=== PATIENT | male | born 1965 | race Caucasian/White ===

== ENCOUNTER 2024-04-10 11:01 | Outpatient (AMB) | payer OTHER, SELFPAY ==
--- NOTE | 2024-04-10 11:07 | A.OFFVIS_ITS ---
Vital Signs 04/10/24 11:10 Height 5 ft 10 in Weight 158 lb BMI 22.7 BP 105/62 Blood Pressure Location Rt brachial Position Sitting Pulse 56 Intake Visit Reasons: Hemorrhoids Intake Note: This patient presents for hemorrhoids assessment. Pt c/o; reports no rectal bleeding, pain, or constipation. 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 He says that he has had hemorrhoid problems for about 20 years now. He describes what sounds like prolapse of his hemorrhoids with associated discomfort and occasional bleeding. This seems to have been worsening over the years. He says he has difficulty with hygiene as well because of the hemorrhoids on the outside He denies problems with constipation He says he is healthy overall. [facility] Medical History (Updated 04/10/24 @ 11:36 by Danny Ruiz MD) Hemorrhoids with complication Surgical History (Updated 04/10/24 @ 11:20 by HELEN Balderas) History of colonoscopy (~2017) Social History (Updated 04/10/24 @ 11:21 by HELEN Balderas) Alcohol intake: never Patient Tobacco Use Status: Never used Tobacco Review of Systems Const Denies chills and Denies fever(s) Card Denies chest pain, Denies dyspnea and Denies dyspnea on exertion Resp Denies cough, Denies dyspnea and Denies dyspnea on exertion GI Denies hematochezia and Denies change in bowel habits Denies hematuria and Denies difficulty urinating Musc Denies back pain and Denies limited range of motion Neuro Denies focal weakness and Denies convulsions Psych Denies depression and Denies mood swings Physical Exam Vital Signs: Last Vital Signs Pulse 56 04/10/24 11:10 BP 105/62 04/10/24 11:10 BMI result Body Mass Index 22.7 Const General: comfortable and no acute distress Orientation/consciousness: patient oriented x3 Neck Neck: Yes no lymphadenopathy Resp Auscultation: clear to auscultation bilaterally Cardio Rhythm: regular rhythm GI Other: Rectal exam shows hemorrhoids, external, moderate sites on both the left and right side Palpation (GI): Soft to palpation, nontender and no guarding Neuro General: patient oriented x3 Office Procedures Anoscopy He was in karley-knife position. The anoscope was gently inserted. A full examination of the anal canal was done. He did have internal external hemorrhoidal columns, very prominent on both the left and right side. There was no fissure, there was no ulceration. There was no induration on digital exam [id number] Assessment & Plan Assessment & Plan (1) Hemorrhoids with complication: Code(s): K64.8 - Other hemorrhoids Category: Medical Plan: He has both internal external hemorrhoids, very prominent. He describes worsening problems with swelling, pain, discomfort and difficulty with hygiene. He wants to proceed with a hemorrhoidectomy. I had a long discussion with him about the technique of exam under anesthesia and hemorrhoidectomy. I reviewed the risks including but not limited to bleeding, infections, postop pain, as well as the benefits and alternatives. I reviewed with him what to expect postoperatively He understands and wants to proceed. Coding Level of Care Code New Pt Level 3 (37633) Diagnoses Hemorrhoids with complication K64.8 CPT Codes Details - CPT: 22042-Pdnpdymq ([id number])
[2024-04-10 11:10] VITALS: BP 105/62; PULSE 56; BMI 22.7
== END 2024-04-10 11:40 | disposition home or self-care (01) ==
PROVIDERS: Visit Provider Surgery
DX: K64.8 Other hemorrhoids (principal)
CPT/HCPCS: 46600; 99203

== ENCOUNTER → 2024-04-10 11:01 | Outpatient (BNVA) | payer OTHER, SELFPAY | PROVIDERS: Visit Provider Surgery | DX: K64.8 Other hemorrhoids (principal); K64.4 Residual hemorrhoidal skin tags | CPT/HCPCS: 46600 ==

== ENCOUNTER 2024-05-24 07:59 | Day surgery (SDC) | payer OTHER, SELFPAY ==
[2024-05-22 12:12] VITALS: BMI 22.7
--- NOTE | 2024-05-22 13:47 | HO.ANESPROP2 ---
HPI - Anesthesia Eval Consult details Narrative: 59yo M for EUA, Hemorrhoidectomy PMFSH Active Problems Active Problems: All Active Problems Hemorrhoids with complication (Acute) Past Medical History Medical History Hemorrhoids with complication Surgical History Surgical History History of hemorrhoidectomy (~05/24/24) Hx of hand surgery Hx of appendectomy Hx of umbilical hernia repair History of colonoscopy (~2016) Social History Social History Alcohol intake: never Patient Tobacco Use Status: Never used Tobacco Tobacco use type: Pipe Meds Allergies Allergy/AdvReac Type Severity Reaction Status Date / Time No Known Allergies Allergy Verified 06/06/24 10:11 Home Medications ?Medication ?Instructions ?Recorded ?Confirmed ?Last Taken ?Type multivitamin 1 tab PO DAILY 04/10/24 05/24/24 Unknown History propranolol 20 mg tablet 20 mg PO Q3H PRN anxiety 04/10/24 05/24/24 Unknown History Exam Height,Weight and Vital Signs: Height 5 ft 10 in Weight 71.668 kg Assessment and Plan Assessment Anesthesia Assessment: Chart Reviewed
[2024-05-24 08:09] VITALS: BMI 22.1
[2024-05-24 08:15] VITALS: BP 105/66; PULSE 48; RESP 15; TEMP 36.6; O2SAT 98
--- NOTE | 2024-05-24 09:18 | HO.ANESPROP2 ---
[facility] Active Problems Active Problems: All Active Problems Hemorrhoids with complication (Acute) Past Medical History Medical History Hemorrhoids with complication Functional capacity: independent ambulation Family History Family history of problems with anesthesia: No Surgical History Surgical History Hx of hand surgery Hx of appendectomy Hx of umbilical hernia repair History of colonoscopy (~2016) History of Problems with Anesthesia: No Social History Social History Alcohol intake: never Patient Tobacco Use Status: Never used Tobacco Tobacco use type: Pipe Use of substances other than those prescribed or required for medical reasons: No Are you DNR?: No Advance Directives: No Advance Directives Information Provided: Yes Meds Allergies Allergy/AdvReac Type Severity Reaction Status Date / Time No Known Allergies Allergy Verified 05/24/24 08:07 Active Medications: Current Medications Lactated Ringer's (Lr) 1,000 mls @ 100 mls/hr IVCONT .Q10H JOSE E Home Medications ?Medication ?Instructions ?Recorded ?Confirmed ?Last Taken ?Type multivitamin 1 tab PO DAILY 04/10/24 05/24/24 Unknown History propranolol 20 mg tablet 20 mg PO Q3H PRN anxiety 04/10/24 05/24/24 Unknown History Exam Height,Weight and Vital Signs: Height 5 ft 10 in Weight 69.853 kg Last Vital Signs Temp 97.8 F 05/24/24 08:15 Pulse 48 L 05/24/24 08:15 Resp 15 05/24/24 08:15 BP 105/66 05/24/24 08:15 Pulse Ox 98 05/24/24 08:15 O2 Del Method Room Air 05/24/24 08:15 Airway Mallampati Class: II TM Dist: >3cm Neck ROM: Full Heart: RRR Lungs: CTA Assessment and Plan Assessment Anesthesia Assessment: Anesthesia Plan Discussed and Chart Reviewed Final Anesthetic Review Family History of Problems with Anesthesia: No History of Problems with Anesthesia: No NPO: Yes ASA Class: II and Emergency Final Preanesthetic Review: Meds/Allgs Chart Reviewed, Consent Obtained/Reviewed and Anes Risks/Benef Reviewed Patient Risk: Low Procedure Risk: Low Anesthetic Plan Anesthetic Plan: GA Disposition: Standard PACU
--- NOTE | 2024-05-24 09:38 | MHC.SHP ---
Pre-Procedural Eval Section A - 24 Hr Update-Section A only Date of Service: 05/24/24 Section B - Complete if H&P > 30 days Chief Complaint: Other hemorrhoids Details of Present Illness: Has had worsening discomfort with his hemorrhoids and wants to proceed with hemorrhoidectomy Relevant Family History (Specify if Yes): No Relevant Social History: None Present Medications: see Short Stay Collaborative assessment Medical History: No relevant PMH Allergies: Allergies Allergy/AdvReac Type Severity Reaction Status Date / Time No Known Allergies Allergy Verified 05/24/24 08:07 Review of Systems Sugical H&P ROS: Negative: Constitution, Respiratory, Gastrointestinal and Genitourinary Exam Surgical H&P Exam: Normal: Heart, Normal: Lungs, Normal: Abdomen and Normal: Neurological Plan Diagnosis/Plan: Unchanged I have reviewed the history and physical and performed a pertinent physical examination on my patient. No changes have occurred unless specified. Time Spent With Patient Time: Total time managing care of this patient today ____ minutes.
--- NOTE | 2024-05-24 10:38 | W.PM.OPN ---
Operative Note Operative Note Date of Service: 05/24/24 Narrative: Preop diagnosis: Internal external hemorrhoids, with discomfort and bleeding Postop diagnosis: The same Procedure: Exam under anesthesia hemorrhoidectomy x2 columns Surgeon: Danny Ruiz MD The patient is a 59-year-old male with a long history of discomfort, and bleeding with his hemorrhoids. He therefore wanted to proceed with a hemorrhoidectomy. He understood the technique of the planned procedure as well as the risks, benefits, and alternatives He was brought to the operating room. He was placed in prone karley-knife position under general anesthesia via endotracheal tube. The buttocks were retracted with wide tape laterally. The perianal area was prepped and draped in the usual sterile fashion. A surgical time-out was done. The patient received Cefotan 2 g IV preoperatively The perianal area was infiltrated with lidocaine 1%. Examination of the anal orifice revealed external hemorrhoidal columns on both the left and right side. I inserted the Jessica Whalen retractor. I examined the anal canal circumferentially. There was a bulky hemorrhoidal column on the right side, a mix of internal external. There were no other lesions in the anal canal. I applied a Coe grasper on this hemorrhoidal column on the right and retracted this out into the field. I made a [id number] stitch at the pedicle past the dentate line with a chromic 3-0 stitch. I made an incision around this hemorrhoidal column to the perianal skin with a blade 15. I excised this hemorrhoidal column above the plane of the sphincters along this incision with scissors. I closed this incision with a running chromic 3-0 stitch with additional hemostatic [id number] sutures placed for oozing areas The same procedure was duplicated on the hemorrhoidal column on the left. This was a smaller hemorrhoidal column but was a mix of internal external. I applied a Coe grasper to retract this column and made a figure of 8 stitch at the pedicle. I made an incision around this hemorrhoidal column to the perianal skin and excise this above the plane of the sphincters along this incision with scissors. I closed this incision with a running chromic 3-0 stitch with additional hemostatic sutures placed Once hemostasis confirmed, I infiltrated the perianal area with Marcaine 0.5% for postop analgesia. I inserted a Gelfoam packing into the anal canal for additional hemostasis The procedure was then completed. The patient tolerated the procedure well. There were no immediate complications. Initial and final counts of sponges and instruments were correct. Estimated blood loss was about 25 cc. The patient was extubated without difficulty and transferred to the recovery room with stable vital signs.
[2024-05-24 10:47] VITALS: BP 115/75; PULSE 69; RESP 16; TEMP 36.2; O2SAT 97
[2024-05-24 10:52] VITALS: BP 104/61; PULSE 55; RESP 16; O2SAT 97
[2024-05-24 10:57] VITALS: BP 105/58; PULSE 65; RESP 16; O2SAT 100
[2024-05-24 11:01] VITALS: BP 109/59; PULSE 64; RESP 16; O2SAT 100
--- NOTE | 2024-05-24 11:01 | HO.POSTANES ---
Post Anesthesia Evaluation Post Anesthesia Evaluation Date of Service: 05/24/24 Vital Signs: Vital Signs Temp Pulse Resp BP Pulse Ox O2 Del Method 05/24/24 10:57 65 16 105/58 L 100 Room Air 05/24/24 10:52 55 16 104/61 97 Room Air 05/24/24 10:47 97.2 F 69 16 115/75 97 Room Air 05/24/24 08:15 97.8 F 48 L 15 105/66 98 Room Air Anesthesia: General Endotracheal-GETA Mental Status: Awake Pain Control: Satisfactory Nausea/Vomiting: None Hydration: Adequate Anesthesia-Related Issues: No Anes. Related Issues
[2024-05-24 11:31] VITALS: PULSE 63; RESP 18; TEMP 36.6; O2SAT 100
== END 2024-05-24 11:45 | disposition home or self-care (01) ==
PROVIDERS: PCP Registered Nurse; Visit Provider Surgery
PROC: (CPT 46260; principal; 2024-05-24 10:00)
DX: K64.8 Other hemorrhoids (principal); K64.4 Residual hemorrhoidal skin tags
CPT/HCPCS: 46260; 88304; J1100; J2003; J2250; J2405; J2704; J2795; J3010

== ENCOUNTER → 2024-05-24 07:59 | Outpatient (BNV) | payer OTHER, SELFPAY | PROVIDERS: PCP Registered Nurse; Visit Provider Surgery | DX: K64.8 Other hemorrhoids (principal) | CPT/HCPCS: 46260 ==

== ENCOUNTER 2024-06-06 09:57 | Outpatient (AMB) | payer OTHER, SELFPAY ==
--- NOTE | 2024-06-06 10:03 | MHC.OFFVIS ---
Vital Signs 06/06/24 10:10 Height 5 ft 10 in Weight 153 lb BMI 22.0 Intake Visit Reasons: S/P hemorrhoidectomy Intake Note: This patient presents for post-op follow-up assessment status post EUA, hemorrhoidectomy x2 columns. Pt c/o; reports no complaints. 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 He tolerated procedure well. He admits to having significant pain the 1st few days. He says he is feeling much better now. [facility] Medical History Hemorrhoids with complication Surgical History History of hemorrhoidectomy (~05/24/24) Hx of hand surgery Hx of appendectomy Hx of umbilical hernia repair History of colonoscopy (~2016) Social History Alcohol intake: never Patient Tobacco Use Status: Never used Tobacco Tobacco use type: Pipe Review of Systems Const Denies chills and Denies fever(s) Physical Exam Vital Signs: BMI result Body Mass Index 22.0 Const Other: Sitting down comfortably General: comfortable and no acute distress Resp Effort & Inspection: normal respiratory effort GI Other: Rectal exam shows hemorrhoidectomy sites to be healing well without any signs of infection, discharge, no induration Assessment & Plan Assessment & Plan (1) Hemorrhoids with complication: Code(s): K64.8 - Other hemorrhoids Category: Medical Plan: Status post hemorrhoidectomy x2 columns. He is doing very well now. His incisions are well healing. I advised him to avoid straining and constipation. He can otherwise follow up on a p.r.n. basis. His path report confirms hemorrhoid tissue. Coding Level of Care Code Global (64494) Diagnoses Hemorrhoids with complication K64.8
[2024-06-06 10:10] VITALS: BMI 22.0
== END 2024-06-06 10:49 | disposition home or self-care (01) ==
PROVIDERS: Visit Provider Surgery
DX: K64.8 Other hemorrhoids (principal)
CPT/HCPCS: 99024

== ENCOUNTER → 2024-06-06 09:57 | Outpatient (BNVA) | payer OTHER, SELFPAY | PROVIDERS: Visit Provider Surgery ==